=== PATIENT | male | born 1990 | race African-American/Black ===

== ENCOUNTER 2016-05-10 17:39 | Emergency (ER) | payer SELFPAY ==
[2016-05-10 19:06] LABS: Urine Bacteria Absent (Absent); Urine Bilirubin Negative (Negative); Urine Glucose Negative (Negative); Urine Nitrite Negative (Negative)
--- NOTE | 2016-05-10 19:15 | RAD ---
Indication: Bilateral scrotal pain. Real-time sonography of the scrotum was performed. The right testis measures 4.1 x 2.6 x 3.0 cm. No intratesticular masses are noted. Normal flow is noted in the right testis. The epididymis measures 14 x 13 mm. No evidence of hydrocele is noted. The left testis measures 4.2 x 2.3 x 2.6 cm. No intratesticular masses are noted. The epididymis measures 10 x 17 mm. No hydrocele is noted. Bilaterally there is scrotal skin thickening consistent with cellulitis. The epididymis I laterally appear to be enlarged and hyperemic. Findings are consistent with bilateral epididymitis. IMPRESSION: Enlarged hyperemic epididymis bilaterally. Scrotal skin thickening is noted consistent with cellulitis as well. No intratesticular masses are noted.
[2016-05-10] MEDS ORDERED: cefTRIAXone VIAL(*) 250 MG VIAL IM ONE (19:56)
[2016-05-10] MEDS ORDERED: Ibuprofen TAB* 800 MG PO ONE (19:57)
[2016-05-10] MEDS ORDERED: Sulfamethox/Trimethoprim DS 800/160* TAB PO ONE (19:58)
[2016-05-10] MEDS ORDERED: DOXYcycline CAP(*) 100 MG PO ONE (20:00)
--- NOTE | 2016-05-10 20:04 | ED ---
GI/ HPI - HPI Summary HPI Summary: 25M presents with testicular pain for 2 weeks. He admits to penile discharge that is yellow. He has also admits to dysuria. He states that he has been sexual active. He denies any abdominal pain, n/v/d. He denies any rectal pain. He denies any fevers. He has never had these symptoms before. He denies any rash. - History of Current Complaint Chief Complaint: EDUrogenitalProblems Time Seen by Provider: 05/10/16 19:36 Stated Complaint: TESTICULAR PAIN Pain Intensity: 10 - Allergy/Home Medications Allergies/Adverse Reactions: Allergies Allergy/AdvReac Type Severity Reaction Status Date / Time No Known Allergies Allergy Verified 02/13/16 23:45 PMH/Surg Hx/FS Hx/Imm Hx Endocrine/Hematology History: Denies: Hx Anticoagulant Therapy Cardiovascular History: Denies: Hx Hypertension Infectious Disease History: No Infectious Disease History: Denies: Traveled Outside the [place] in Last 30 Days - Family History Known Family History: Negative: Cardiac Disease, Hypertension, Diabetes - Social History Alcohol Use: Weekly Substance Use Type: Reports: Marijuana Smoking Status (MU): Heavy Every Day Tobacco Smoker Review of Systems Negative: Fever Negative: Chest Pain Negative: Shortness Of Breath Positive: burning, dysuria, discharge, other - testicular pain All Other Systems Reviewed And Are Negative: Yes Physical Exam Triage Information Reviewed: Yes Vital Signs On Initial Exam: Initial Vitals Temp Pulse Resp BP Pulse Ox 98.4 F 76 18 108/69 100 05/10/16 17:46 05/10/16 17:46 05/10/16 17:46 05/10/16 17:46 05/10/16 17:46 Vital Signs Reviewed: Yes Appearance: Positive: Well-Appearing Skin: Positive: Warm, Dry Head/Face: Positive: Normal Head/Face Inspection Eyes: Positive: Normal, Conjunctiva Clear Respiratory/Lung Sounds: Positive: Clear to Auscultation, Breath Sounds Present Cardiovascular: Positive: Normal, RRR Male Genital Exam: Positive: epididymal tenderness, other - patient is diffusely tender over scrotum with pain greatest over epididymitis. pain is somewhat relieved with scrotal elevation. Negative: erythema - [place] Coma Scale Coma Scale Total: 15 Diagnostics - Vital Signs Vital Signs Temp Pulse Resp BP Pulse Ox 05/10/16 19:11 98.8 F 82 15 112/65 99 05/10/16 17:46 98.4 F 76 18 108/69 100 - Laboratory Lab Results: Lab Results 05/10/16 Range/Units 18:30 Urine Color Yellow Urine Appearance Cloudy Urine pH 6.0 (5-9) Ur Specific [place] 1.024 (1.010-1.030) Urine Protein 1+(30 mg/dl) H (Negative) Urine Ketones Negative (Negative) Urine Blood 1+ H (Negative) Urine Nitrate Negative (Negative) Urine Bilirubin Negative (Negative) Urine Urobilinogen Negative (Negative) Ur Leukocyte Esterase 3+ H (Negative) Urine WBC (Auto) 3+(>20/hpf) H (Absent) Urine RBC (Auto) 3+(>10/hpf) H (Absent) Ur Squamous Epith Cells Present H (Absent) Urine Bacteria Absent (Absent) Urine Glucose Negative (Negative) Lab Statement: Any lab studies that have been ordered have been reviewed, and results considered in the medical decision making process. - Ultrasound No standard instances Ultrasound Interpretation: Positive (See Comments) - IMPRESSION: Enlarged hyperemic epididymis bilaterally. Scrotal skin thickening is noted consistent with cellulitis as well. No intratesticular masses are noted. Ultrasound Interpretation Completed By: Radiologist DONALDOU Course/Dx - Course Course Of Treatment: 25M presents with testicular pain for two weeks. He states that he has noticed penile discharge. He has been sexual active. He also admits to dysuria. on exam he has diffuse scrotal tenderness greatest at epididymitis. got urethral swap for STD. u/a positive for WBC and leuk will treat with bactrim to cover for potential cellulitis and UTI. no cellulitis seen on exam. gave ceftriaxone and will treat with doxycycline for epidymitis. patient understands and agrees with plan - Diagnoses Differential Diagnoses - Male: Epididymitis, Prostatitis, STD, Urinary Tract Infection Provider Diagnoses: Epididymitis, UTI (urinary tract infection) Discharge - Discharge Plan Condition: Good Disposition: HOME Prescriptions: DOXYcycline CAP(*) [DOXYcycline 100MG CAP(*)] 100 mg PO BID #19 cap Sulfamethox/Trimethoprim DS* [Bactrim DS 800/160 TAB*] 1 tab PO BID #13 tab Patient Education Materials: Epididymitis (ED), Urinary Tract Infection in Men (ED) Referrals: No Primary Care Phys,NOPCP [Primary Care Provider] - Additional Instructions: Take Bactrim twice a day for 7 days Take doxycycline twice a day for 10 days Take ibuprofen or Tylenol for pain every 6 hours Elevate scrotum, place ice on area Return to ED if develop fever or any new or worsening symptoms
[2016-05-10 21:08] VITALS: BP 125/56
--- NOTE | 2016-05-11 17:26 | ED ---
Progress - Progress Note Progress Note: Pt's cx returned w/ + chlamydia. He was empirically tx'd in ED w/ rocephin for gonorrhea coverage as well as doxycycline outpt which will cover infection. Attempted to call to inform about dx and encourage completion of doxycycline however his listed number was incorrect - a woman answered and reported I was calling a residence and she did not know how he was. Will mail letter but in regards to tx, as long as pt completes doxy as directed, no change in tx. Does need to notify partner(s) in order to co-treat. Course/Dx - Course Course Of Treatment: 25M presents with testicular pain for two weeks. He states that he has noticed penile discharge. He has been sexual active. He also admits to dysuria. on exam he has diffuse scrotal tenderness greatest at epididymitis. got urethral swap for STD. u/a positive for WBC and leuk will treat with bactrim to cover for potential cellulitis and UTI. no cellulitis seen on exam. gave ceftriaxone and will treat with doxycycline for epidymitis. patient understands and agrees with plan - Diagnoses Provider Diagnoses: Epididymitis, UTI (urinary tract infection)
== END 2016-05-10 21:08 | disposition home or self-care (01) ==
LOC: ED 17:39
DX: N45.1 Epididymitis (principal); N39.0 Urinary tract infection, site not specified; A74.9 Chlamydial infection, unspecified; F12.90 Cannabis use, unspecified, uncomplicated
CPT/HCPCS: 76870; 81003; 81015; 87086; 87491; 87591; 96372; 99282; A9270-GY; J0696